=== PATIENT | male | born 1960 | race Caucasian/White ===

== ENCOUNTER 2021-04-13 23:44 | Inpatient (IN) | payer BC ==
[~2021-04-13] VITALS: Ht 182.9 cm; Wt 122.5 kg
--- NOTE | 2021-04-14 00:10 | NUR ---
PATIENT BIB WITH C/O PROGRESSING CONFUSION AND VISUAL HALLUCINATIONS FOR THE WEEK. PATIENT IS ON IMMUNOTHERAPY FOR MELANOMA FOR THE PAST 4 MONTHS. PATIENT IS A/O X 4, RR EVEN AND UNLABORED, NO SIGNS OF SOB NOTED. PATIENT CONNECTED TO CARDIAC AND POX MONITOR.
[2021-04-14 01:02] LABS: BASOPHILS # (AUTO) 0.1 K/uL (0.0-0.2); BASOPHILS % (AUTO) 0.8 % (0.0-2.0); EOSINOPHILS % (AUTO) 2.5 % (0.0-6.0); HEMATOCRIT 41 % (39-51); HEMOGLOBIN 14.6 g/dL (13.5-17.5); LYMPHOCYTES % (AUTO) 24.6 % (20.0-44.0); MEAN CORPUSCULAR HGB CONC 36 g/dl (31.0-36.0); MEAN CORPUSCULAR VOLUME 97 fL (80-96); MONOCYTES # (AUTO) 0.7 K/uL (0.1-1.30); MONOCYTES % (AUTO) 8.1 % (2.0-12.0); NEUTROPHILS # (AUTO) 5.3 K/uL (1.8-8.9); PLATELET COUNT (AUTO) 247 K/uL (150-450); WHITE BLOOD COUNT (AUTO) 8.3 K/uL (4.3-11.0)
--- NOTE | 2021-04-14 01:05 | NUR ---
PATIENT TAKEN TO CT
[2021-04-14 01:10] LABS: CALCIUM, SERUM 9.2 mg/dL (8.5-10.1); CARBON DIOXIDE 30 mmol/L (21-32); CHLORIDE 99 mmol/L (98-107); CREATININE 1.5 mg/dL (0.6-1.3); GLUCOSE 102 mg/dL (74-106); POTASSIUM 3.8 mmol/L (3.5-5.1); SODIUM SERUM 138 mmol/L (136-145); UREA NITROGEN, BLOOD 16 mg/dL (7-18)
[2021-04-14 01:16] LABS: ALANINE AMINOTRANSFERASE 84 U/L (12-78); ALBUMIN 4.1 g/dL (3.4-5.0); ALKALINE PHOSPHATASE 68 U/L (46-116); ASPARTATE AMINOTRANSFERASE 119 U/L (15-37); BILIRUBIN,DIRECT 0.1 mg/dL (0.0-0.2); BILIRUBIN,TOTAL 0.5 mg/dL (0.2-1.0); TOTAL PROTEIN, SERUM 7.5 g/dL (6.4-8.2)
[2021-04-14 01:32] LABS: ABG BASE EXCESS 4.6 mmol/L; ABG OXYGEN SATURATION 92.4 % (92.0-98.5); ABG PH 7.416 (7.350-7.450); ABG PO2 65.4 mmHg (75.0-100.0); AaDO2 106.6 mmHg; COHb 0.1 % (0.5-1.5); MetHb 0.2 % (0.0-1.5); O2Hb 92.1 % (94.0-97.0); SITE, ABG Right Radial
[2021-04-14 02:09] LABS: SERUM AMMONIA 31 umol/L (11-32)
--- NOTE | 2021-04-14 02:10 | NUR ---
TEOFILO DONE AND SENT TO LAB
[2021-04-14] MEDS ORDERED: IV NS 0.9% 250 ML IV ONE (02:29)
[2021-04-14] MEDS ORDERED: IOHEXOL-300 100 ML VIAL IV ONE (02:29)
--- NOTE | 2021-04-14 02:33 | NUR ---
PATIENT TAKEN TO CT
--- NOTE | 2021-04-14 02:44 | NUR ---
BACK FROM CT
[2021-04-14] MEDS ORDERED: IV NS 0.9% 1,000 ML BAG IV ONE (04:00)
--- NOTE | 2021-04-14 04:32 | NUR ---
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 WITH TRACK# [id number] FOR TELE ADMISSION
--- NOTE | 2021-04-14 04:35 | NUR ---
PANEL PAGED PER DR BLACKBURN'S ORDER
[2021-04-14] MEDS ORDERED: ACETAMINOPHEN 325 MG TABLET ONE (04:39)
[2021-04-14] MEDS ORDERED: AMLO-213 PO (04:47)
[2021-04-14] MEDS ORDERED: HYDR50TA4 PO (04:47)
[2021-04-14] MEDS ORDERED: ACET325T53 PO (04:47)
--- NOTE | 2021-04-14 04:59 | NUR ---
RE PAGED DR BARNES
[2021-04-14 05:00] VITALS: BP 156/98
[2021-04-14] MEDS ORDERED: ACETAMINOPHEN 325 MG TABLET PO ONE (05:00)
--- NOTE | 2021-04-14 05:33 | NUR ---
back from ct
--- NOTE | 2021-04-14 06:20 | NUR ---
MYRA AMBULATED TO RESTROOM. PATIENT RETURNED TO ROOM, CONNECTED TO CARDIAC AND POX MONITOR. PATIENT RESTING IN BED, IN NO ACUTE DISTRESS.
[2021-04-14] MEDS ORDERED: ACETAMINOPHEN 325 MG TABLET PO PRN (06:30)
[2021-04-14] MEDS ORDERED: ONDANSETRON HCL/PF 4 MG/2 ML VIAL IVP PRN (06:30)
[2021-04-14] MEDS ORDERED: Z GUARD REMEDY 2 OZ OINT TP PRN (06:30)
[2021-04-14] MEDS ORDERED: ZOLPIDEM TARTRATE 5 MG TABLET PO PRN (06:30)
[2021-04-14] MEDS ORDERED: MAG HYDROX/AL HYDROX/SIMETH 30 ML UDC PO PRN (06:30)
[2021-04-14] MEDS ORDERED: MAGNESIUM HYDROXIDE 30 ML UDC PO PRN (06:30)
[2021-04-14 06:41] LABS: MAGNESIUM 2.3 mg/dL (1.8-2.4); PHOSPHORUS 5.2 mg/dL (2.5-4.9)
--- NOTE | 2021-04-14 07:33 | NUR ---
GOT BED 324-1
--- NOTE | 2021-04-14 08:33 | NUR ---
REPORT GIVEN TO KIKE FRASER FOR [facility].
[2021-04-14] MEDS ORDERED: HYDROCHLOROTHIAZIDE 25 MG TABLET PO SCH (09:00)
[2021-04-14] MEDS ORDERED: AMLODIPINE BESYLATE 10 MG TABLET PO SCH (09:00)
--- NOTE | 2021-04-14 09:03 | NUR ---
PATIENT A/OX3, BREATHING EVEN AND UNLABORED, NO SOB NOTED, NEEDS ATTENDED. KEPT COMFORTABLE, TRANSFERRED TO ROOM 324-1 VIA ACLS PROTOCOL. NO DISTRESS NOTED. ENDORSED TO KIKE FRASER.
--- NOTE | 2021-04-14 09:05 | NUR ---
pt. brought up from er.refusing to have vs done or anything.requesting to leave.charge poster informed.called to come in.
--- NOTE | 2021-04-14 09:15 | NUR ---
hep lock removed.
--- NOTE | 2021-04-14 09:45 | NUR ---
here.spoke to pt.,pt. still refusing to stay.ama paper signed.logging crew supervisor informed.taken to lobby for discharge via w/c accompanied by die operator and .
--- NOTE | 2021-04-14 11:15 | NUR ---
hep lock removed. Addendum: 04/14/21 at 1221 by KIKE ALEJANDRE RN above info documented at wrong time.
== END 2021-04-14 09:45 | disposition left against medical advice (07) | DRG 189 ==
LOC: ER 23:48 → TRANSITION 04-14 07:31 → TELE 04-14 07:49
PROVIDERS: ADMIT Registered Nurse; ATTEND Registered Nurse
DX: J96.01 Acute respiratory failure with hypoxia (principal); G93.41 Metabolic encephalopathy; N17.0 Acute kidney failure with tubular necrosis; E87.2 Acidosis; C79.2 Secondary malignant neoplasm of skin; I10 Essential (primary) hypertension; Z20.822 Contact with and (suspected) exposure to COVID-19; Z79.899 Other long term (current) drug therapy; G47.30 Sleep apnea, unspecified; E83.39 Other disorders of phosphorus metabolism; Z72.0 Tobacco use; Z68.37 Body mass index [BMI] 37.0-37.9, adult; E66.01 Morbid (severe) obesity due to excess calories; N28.1 Cyst of kidney, acquired; Z85.841 Personal history of malignant neoplasm of brain
CPT/HCPCS: 36415; 36600; 70450-TC; 70490-TC; 71045-TC; 80048-TC; 80061-TC; 80076-TC; 82140-TC; 83735-TC; 84100-TC; 84484-TC; 85025-TC; C9803; G0378; J7050; Q9967